=== PATIENT | female | born 1955 | race African-American/Black ===

== ENCOUNTER → 2020-10-24 | Outpatient (CLI) | payer MEDICARE ==
[2015-04-05 11:28] VITALS: BP 153/87
[~2020-10-24] MED LIST: ALPR2TAB5 PO; ATOR20TA58 PO; CHLO25TA10 PO; CYCL10TA2 PO; DICY10CA53 PO; GABA600T7 PO; MELO15TA23 PO; VENL75TA PO
== END ==
LOC: LAB 10:03
PROVIDERS: ATTEND Internal Medicine Gastroenterology
DX: Z01.812 Encounter for preprocedural laboratory examination (principal); Z20.828 Contact with and (suspected) exposure to other viral communicable diseases; R19.4 Change in bowel habit
CPT/HCPCS: U0003

== ENCOUNTER → 2020-10-26 | Day surgery (SDC) | payer MEDICARE ==
[~2020-10-26] MED LIST changes: +IV RINGERS,LACTATED 1000ML 1,000 ML IV SCH; +LIDOCAINE 2% PF 5 ML VIAL. ONE; +PROPOFOL 10 MG/ML (20ML) VIAL. IV ONE
[2020-10-26 08:28] VITALS: BP 136/72
== END | disposition home or self-care (01) ==
LOC: ENDOS 06:34
PROVIDERS: ATTEND Internal Medicine Gastroenterology
DX: R19.4 Change in bowel habit (principal); K64.0 First degree hemorrhoids; E66.9 Obesity, unspecified; F32.9 Major depressive disorder, single episode, unspecified; E78.00 Pure hypercholesterolemia, unspecified; G47.30 Sleep apnea, unspecified; F41.9 Anxiety disorder, unspecified; Z98.890 Other specified postprocedural states; Z83.3 Family history of diabetes mellitus; Z79.899 Other long term (current) drug therapy; Z82.49 Family history of ischemic heart disease and other diseases of the circulatory system
CPT/HCPCS: 45378; J2704